=== PATIENT | female | born 1980 | race Hispanic/Latino ===

== ENCOUNTER 2017-05-11 09:49 | Outpatient (CLI) | payer BC ==
[2017-05-11] MEDS ORDERED: WATER FOR INJ (PF) 10 ML ONE (11:02)
[2017-05-11] MEDS ORDERED: KINEVAC IV ONE ×2 (11:03)
[2017-05-11] MEDS ORDERED: WATER FOR INJ (PF) IV ONE (11:04)
--- NOTE | 2017-05-11 15:06 | Nuclear Medicine Report ---
HEPATOBILIARY SCAN: History: Right upper quadrant pain, nausea. Following the injection of the radionuclide, serial scanning was obtained over the right upper quadrant. Initial imaging of the liver demonstrates a relatively normal activity pattern. Progressive concentration of the radionuclide in the bile ducts, with filling of both the gallbladder and small bowel, is identified within a normal time period. The gallbladder ejection fraction is slightly decreased measuring 21%. The patient reports the same pain and nausea following infusion of CCK. IMPRESSION: The cystic duct is patent. Decreased gallbladder ejection fraction consistent with biliary dyskinesia.
== END 2017-05-11 09:50 | disposition home or self-care (01) ==
LOC: NM 09:49
PROVIDERS: ATTEND Surgery
DX: R10.11 Right upper quadrant pain (principal); R11.0 Nausea
CPT/HCPCS: 78227; A9537; J2805